=== PATIENT | male | born 1975 | race Caucasian/White ===

== ENCOUNTER 2018-11-27 12:19 | Emergency (ER) | payer MEDICAID ==
[~2018-11-27] VITALS: Ht 177.8 cm; Wt 97.1 kg
[~2018-11-27 12:19] MED LIST: ALLO100T91 PO; LANS30CA53 PO; TAMS-11 PO; TEST200V IM
[2018-11-27 12:26] VITALS: BP_SYST 141
--- NOTE | 2018-11-27 13:14 | NUR ---
Patient to ER bed 08 to gown for evaluation. Side rails up.
--- NOTE | 2018-11-27 13:21 | NUR ---
Pt AAOx4 presents to ED c/o pain to R foot s/p trip and fall down stairs prior to arrival. Pt unable to bear weight on R foot without pain. No other injuries/complaints per pt/noted. Will continue to monitor.
[2018-11-27 13:38] VITALS: BP_SYST 132
--- NOTE | 2018-11-27 13:38 | NUR ---
Patient given written and verbal discharge instructions and verbalizes understanding. ER MD AGUILA discussed with patient the results and treatment provided. Patient in stable condition. ID arm band removed. Rx of MOTRIN, NORCO given. Patient educated on pain management and to follow up with PMD. Pain Scale 2. Opportunity for questions provided and answered. Medication side effect fact sheet provided.
== END 2018-11-27 13:38 | disposition home or self-care (01) ==
LOC: SED 12:19
DX: S92.354A Nondisplaced fracture of fifth metatarsal bone, right foot, initial encounter for closed fracture (principal); J45.909 Unspecified asthma, uncomplicated; Z87.442 Personal history of urinary calculi; Z85.47 Personal history of malignant neoplasm of testis; Z88.2 Allergy status to sulfonamides; Z79.899 Other long term (current) drug therapy; W10.9XXA Fall (on) (from) unspecified stairs and steps, initial encounter; Y93.89 Activity, other specified; Y92.89 Other specified places as the place of occurrence of the external cause; Y99.8 Other external cause status
CPT/HCPCS: 99283

== ENCOUNTER 2020-09-18 09:39 | Emergency (ER) | payer MEDICAID ==
[~2020-09-18] VITALS: Ht 180.3 cm; Wt 82.6 kg
[2020-09-18 09:40] VITALS: BP_SYST 143
--- NOTE | 2020-09-18 09:40 | NUR ---
Patient to ER bed 7 to gown for evaluation. Side rails up.
--- NOTE | 2020-09-18 09:45 | NUR ---
Pt walked in to ER with c/o abdominal pain, 07/07 since yesterday. Reports history of Crohn's Disease and states "this feels like a flare-up". V/S stable, pt is afebrile. Currently resting in bed, will continue to monitor.
--- NOTE | 2020-09-18 09:59 | NUR ---
ER Dr. Ramírez at bedside examining patient.
[2020-09-18] MEDS ORDERED: NACL 0.9% 1,000 ML IV ONE (10:15)
[2020-09-18] MEDS ORDERED: MORPHINE 4 MG/ML INJ. SYRINGE IVP ONE (10:15)
[2020-09-18] MEDS ORDERED: methylPREDNISolone SOD SUCC/PF 62.5 MG/ML VIAL IVP ONE (10:15)
[2020-09-18] MEDS ORDERED: ONDANSETRON HCL 4 MG/2 ML VIAL IVP ONE (10:15)
[2020-09-18 10:25] LABS: BASOPHILS # (AUTO) 0.1 K/uL (0.0-0.2); EOSINOPHILS # (AUTO) 0.1 K/uL (0.0-0.4); EOSINOPHILS % (AUTO) 1.4 % (0.0-4.0); HEMATOCRIT 40.4 % (36-54); HEMOGLOBIN 13.5 g/dL (14.0-18.0); LYMPHOCYTES # (AUTO) 1.8 K/uL (1.0-5.5); MEAN CORPUSCULAR HEMOGLOBIN 31 pg (27-31); MEAN CORPUSCULAR HGB CONC 34 % (32-36); MEAN CORPUSCULAR VOLUME 92 fL (79.0-98.0); MONOCYTES # (AUTO) 0.9 K/uL (0.0-1.0); MONOCYTES % (AUTO) 9.5 % (1.7-9.3); NEUTROPHILS # (AUTO) 6.1 K/uL (1.8-7.7); NEUTROPHILS % (AUTO) 68.1 % (40.0-70.0); PLATELET COUNT (AUTO) 243 K/uL (130-430)
--- NOTE | 2020-09-18 10:25 | NUR ---
# 20 gauge angiocath placed to Right wrist. Use of asceptic technique. Opsite placed over site. Blood return noted. Blood for lab drawn from site. Flushed with 10 cc of normal saline. No evidence of infiltration noted. Patient tolerated well.
[2020-09-18 10:41] LABS: CALCIUM 8.5 mg/dL (8.4-11.0); CREATININE 1.04 mg/dL (0.55-1.30); POTASSIUM 3.9 mmol/L (3.5-5.1)
[2020-09-18 10:46] LABS: ALBUMIN 3.8 g/dL (3.4-4.8); TOTAL BILIRUBIN 0.2 mg/dL (0.0-1.0)
[2020-09-18] MEDS ORDERED: DICYCLOMINE HCL 10 MG CAPSULE PO ONE (11:15)
[2020-09-18] MEDS ORDERED: OXYCODONE/ACETAMINOPHEN *10*mg/325 mg TABLET PO ONE (11:15)
[2020-09-18] MEDS ORDERED: MORPHINE 2 MG/ML INJ. SYRINGE IVP ONE (12:00)
[2020-09-18 12:15] VITALS: BP_SYST 143
--- NOTE | 2020-09-18 12:15 | NUR ---
Patient given written and verbal discharge instructions and verbalizes understanding. ER MD discussed with patient the results and treatment provided. Patient in stable condition. ID arm band removed. No prescriptions given. Patient educated on pain management and to follow up with PMD. Pain Scale 0.
--- NOTE | 2020-09-18 12:15 | NUR ---
Pt signed discharge paperwork and instructed that he could not drive home so we would have to call someone to come pick him up due to the narcotics he received. Pt became extremely agitated and said he needed to go out to his car to get his phone pediatric medical assistant. Refused to give me a number to call for him. Stated he was leaving and ripped his IV out and began to bleed. Site cleaned and pressure dressing applied, pt refused to wait for his ride and walked out the doors.
== END 2020-09-18 12:15 | disposition home or self-care (01) ==
LOC: SED 09:39
DX: K50.90 Crohn's disease, unspecified, without complications (principal); R10.84 Generalized abdominal pain; J45.909 Unspecified asthma, uncomplicated; Z87.442 Personal history of urinary calculi; Z79.899 Other long term (current) drug therapy; Z85.47 Personal history of malignant neoplasm of testis; Z88.2 Allergy status to sulfonamides
CPT/HCPCS: 36415; 80053; 83690; 85025; 96361; 96374; 96375; 96376; 99284; J2270 ×2; J2405; J2930; J7030

== ENCOUNTER 2020-10-20 11:09 | Emergency (ER) | payer MEDICAID ==
[~2020-10-20] VITALS: Ht 180.3 cm; Wt 80.7 kg
[2020-10-20 11:10] VITALS: BP_SYST 156
[2020-10-20] MEDS ORDERED: NACL 0.9% 1,000 ML IV ONE (11:45)
[2020-10-20] MEDS ORDERED: DICYCLOMINE HCL 10 MG/5 ML SOLUTION PO ONE (11:45)
[2020-10-20] MEDS ORDERED: MORPHINE 4 MG/ML INJ. SYRINGE IVP ONE ×2 (12:15→14:00)
[2020-10-20 12:26] LABS: BASOPHILS # (AUTO) 0.1 K/uL (0.0-0.2); BASOPHILS % (AUTO) 0.8 % (0.0-2.0); EOSINOPHILS # (AUTO) 0.1 K/uL (0.0-0.4); EOSINOPHILS % (AUTO) 1.2 % (0.0-4.0); HEMATOCRIT 42.3 % (36-54); HEMOGLOBIN 14.2 g/dL (14.0-18.0); LYMPHOCYTES # (AUTO) 1.3 K/uL (1.0-5.5); LYMPHOCYTES % (AUTO) 16.8 % (20.5-51.5); MEAN CORPUSCULAR HEMOGLOBIN 31 pg (27-31); MEAN CORPUSCULAR HGB CONC 34 % (32-36); MEAN CORPUSCULAR VOLUME 92 fL (79.0-98.0); MONOCYTES # (AUTO) 0.7 K/uL (0.0-1.0); MONOCYTES % (AUTO) 9.1 % (1.7-9.3); NEUTROPHILS # (AUTO) 5.8 K/uL (1.8-7.7); NEUTROPHILS % (AUTO) 72.1 % (40.0-70.0); PLATELET COUNT (AUTO) 244 K/uL (130-430); RED BLOOD CELL COUNT(AUTO) 4.59 MIL/uL (4.2-6.2); RED CELL DISTRIBUTION WIDTH 14.9 % (9.0-15.0)
[2020-10-20 12:38] LABS: ANION GAP 9 (5-15); CALCIUM 9.6 mg/dL (8.4-11.0); CHLORIDE 101 mmol/L (98-107); CREATININE 0.89 mg/dL (0.55-1.30); GLUCOSE 92 mg/dL (70-99); POTASSIUM 4.1 mmol/L (3.5-5.1); SODIUM SERUM 135 mmol/L (136-145); UREA NITROGEN, BLOOD 14 mg/dL (8-21)
[2020-10-20 12:41] LABS: GFR AFRICAN AMERICAN 119 mL/min (>90)
[2020-10-20 12:44] LABS: ALANINE AMINOTRANSFERASE 39 U/L (12-78); ALBUMIN 4.3 g/dL (3.4-4.8); ASPARTATE AMINOTRANSFERASE 38 U/L (10-37); LIPASE 121 U/L (73-393); TOTAL BILIRUBIN 0.5 mg/dL (0.0-1.0)
[2020-10-20] MEDS ORDERED: ONDANSETRON HCL 4 MG/2 ML VIAL IVP ONE (12:45)
[2020-10-20 12:48] LABS: C-REACTIVE PROTEIN QUANT < 0.2 mg/dL (0-0.5)
[2020-10-20 13:15] LABS: ERYTHROCYTE SEDIMENTATION RATE 12 MM/HR (0-15)
[2020-10-20] MEDS ORDERED: DIPHENHYDRAMINE INJ 50 MG/ML VIAL IVP ONE (14:00)
[2020-10-20] MEDS ORDERED: HALOPERIDOL LACTATE 5 MG/ML VIAL IVP ONE (14:00)
[2020-10-20 15:29] VITALS: BP_SYST 139
== END 2020-10-20 15:29 | disposition home or self-care (01) ==
LOC: SED 11:09
DX: R10.11 Right upper quadrant pain (principal); J45.909 Unspecified asthma, uncomplicated; N28.9 Disorder of kidney and ureter, unspecified; Z79.899 Other long term (current) drug therapy; Z88.0 Allergy status to penicillin; Z85.47 Personal history of malignant neoplasm of testis
CPT/HCPCS: 36415; 76376; 80053; 81002; 83690-TC; 85025; 85651-TC; 86140; 96374; 96375; 96376; 99285